=== PATIENT | male | born 1935 | race Caucasian/White ===

== ENCOUNTER 2017-07-20 13:13 | Emergency (ER) | payer MEDICARE ==
[2017-07-20 13:38] LABS: Bilirubin Negative (Negative); Blood, Urine Large (Negative); Clarity Hazy (Clear); Glucose, Urine (Dipstick) Negative (Negative); Leukocyte Negative (Negative); Nitrite Negative (Negative); Protein, Urine (Dipstick) Negative (Neg-Trace); Urobilinogen 0.2 mg/dL (0.2-1.0); pH, Urine 6.5 (5.0-9.0)
[2017-07-20 13:44] LABS: RBC/HPF GREATER THAN 50-TNTC HPF (0-3)
[2017-07-20 13:45] LABS: Bacteria/HPF 1+ HPF (None Seen); Squamous Epithelial 0-3 HPF (0-3); WBC/HPF 0-3 HPF (0-3)
[2017-07-20] MEDS ORDERED: Ciprofloxacin 500 MG TAB ONE (14:21)
[2017-07-20] MEDS ORDERED: Phenazopyridine HCl 97.5 MG TABLET ONE (14:21)
== END 2017-07-20 14:26 | disposition home or self-care (01) ==
LOC: MADERS 13:13
DX: R31.9 Hematuria, unspecified (principal); R82.71 Bacteriuria; E78.00 Pure hypercholesterolemia, unspecified; I10 Essential (primary) hypertension; Z79.899 Other long term (current) drug therapy
CPT/HCPCS: 81001; 87086; 99283